=== PATIENT | female | born 1970 | race Two or more races ===

== ENCOUNTER 2019-04-23 08:13 | Outpatient (CLI) | payer OTHER | END 2019-04-23 15:58 | disposition home or self-care (01) | LOC: LAB 08:13 | DX: N93.8 Other specified abnormal uterine and vaginal bleeding (principal); E03.8 Other specified hypothyroidism; N39.0 Urinary tract infection, site not specified ==

== ENCOUNTER → 2019-04-23 | Outpatient (CLI) | payer OTHER | END | disposition home or self-care (01) | LOC: RAD 10:15 | DX: N93.8 Other specified abnormal uterine and vaginal bleeding (principal) ==

== ENCOUNTER 2019-04-28 11:55 | Inpatient (IN) | payer OTHER ==
[~2019-04-28] VITALS: Ht 162.6 cm; Wt 68.0 kg
[2019-05-01] MEDS ORDERED: [UNRECOGNIZED DRUG - OTHER] PO (16:50)
[2019-05-01] MEDS ORDERED: FIORICET (16:51)
[2019-05-01] MEDS ORDERED: SINGULAIR10 MG PO (16:51)
[2019-05-01] MEDS ORDERED: COZAAR25 MG PO (16:52)
[2019-05-01] MEDS ORDERED: TRICOR PO (16:52)
[2019-05-01] MEDS ORDERED: GLUCOTROL PO (16:52)
[2019-05-07] MEDS ORDERED: CABERGOLINE0.5 MG (07:44)
[2019-05-07] MEDS ORDERED: FENOFIBRATE48 MG PO (07:44)
[2019-05-07] MEDS ORDERED: GLIPIZIDE ER2.5 MG PO (07:44)
[2019-05-07] MEDS ORDERED: BUTALB-ACETAMI1 EAC2 PO (07:45)
== END 2019-05-09 11:02 | DRG 743 ==
LOC: SURG 05-01 15:30 → OB/GYN 05-07 04:55 → O/R 05-07 04:55 → OB/GYN 05-07 07:00
PROVIDERS: ADMIT Obstetrics & Gynecology
PROC: 0DNW0ZZ Release Peritoneum, Open Approach (ICD-10-PCS; 2019-05-07)
PROC: 0UT90ZZ Resection of Uterus, Open Approach (ICD-10-PCS; principal; 2019-05-07 07:00)
DX: D25.1 Intramural leiomyoma of uterus (principal); N80.0 Endometriosis of uterus; N84.0 Polyp of corpus uteri; N83.02 Follicular cyst of left ovary; N83.01 Follicular cyst of right ovary; N83.292 Other ovarian cyst, left side; N83.291 Other ovarian cyst, right side; N73.6 Female pelvic peritoneal adhesions (postinfective); K66.0 Peritoneal adhesions (postprocedural) (postinfection)